=== PATIENT | male | born 2000 | race Caucasian/White ===

== ENCOUNTER 2024-02-25 13:06 | Emergency (ER) | payer OTHER ==
[~2024-02-25] VITALS: Ht 180.3 cm; Wt 104.5 kg
[2024-02-25 13:35] LABS: Urine Bacteria None Seen /hpf (None Seen)
[2024-02-25 13:49] LABS: Urine Blood Negative /uL (Negative); Urine Clarity Clear (Clear); Urine Color Yellow (Yellow); Urine Mucus FEW (None Seen); Urine Protein, UAD TRACE (Negative); Urine Specific Gravity 1.024 (1.001-1.035); Urine Urobilinogen Normal (Negative); Urine WBC 1 /hpf (0 - 3)
[2024-02-25 14:15] LABS: Basophils # (auto) 0 10 ^3/uL (0-0.2); Basophils % (auto) 0.1 % (0.0-2.0); Eosinophils # (auto) 0.1 10 ^3/uL (0-0.8); Monocytes # (auto) 0.6 10 ^3/uL (0-1.3)
[2024-02-25 14:17] LABS: Eosinophils % (auto) 1.2 % (0.0-7.0); Hematocrit 50.6 % (41.0-53.0); Hemoglobin 17.6 g/dL (13.5-17.5); Lymphocytes # (auto) 1.4 10 ^3/uL (0.4-5.4); Lymphocytes % (auto) 12.8 % (10.0-50.0); Mean Corpuscular Hemoglobin 31.3 pg (28.0-32.0); Mean Corpuscular Hgb Conc. 34.8 g/dL (32.0-36.0); Mean Corpuscular Volume 90.1 fL (80.0-100.0); Monocytes % (auto) 5.6 % (0.0-12.0); Neutrophils # (auto) 8.9 10 ^3/uL (1.6-8.6); Neutrophils % (auto) 80.3 % (37.0-80.0); Nucleated Red Blood Cells % 0.3 %; Platelet Count (auto) 244 10^3/uL (140-450); Red Blood Cells 5.62 10^6/uL (4.5-5.90); Red Cell Distribution Width 13.3 % (11.8-14.3); White Blood Cell 11.1 10^3/uL (4.4-10.8)
[2024-02-25 14:30] LABS: Alanine Aminotransferase 34 U/L (7-40); Alkaline Phosphatase 74 U/L (46-116); Anion Gap 6 (5-15); Aspartate Aminotransferase 15 U/L (13-40); BUN/Creatinine Ratio 6.4 (10.0-20.0); Blood Urea Nitrogen 8 mg/dL (9-23); Calcium 9.9 mg/dL (8.7-10.4); Carbon Dioxide 26 mmol/L (20-30); Chloride 107 mmol/L (98-107); Glucose 92 mg/dL (74-106); Lipase 39 U/L (12-53); Potassium 3.8 mmol/L (3.5-5.1); Sodium 139 mmol/L (136-145)
[2024-02-25 14:31] LABS: Total Protein 7.8 g/dL (5.7-8.2)
[2024-02-25] MEDS ORDERED: ZOFR4T PO (16:56)
[2024-02-25 17:00] VITALS: BP 134/91; PULSE 93; RESP 16; TEMP 98.3; O2SAT 98
[2024-02-25 17:13] LABS: Amphetamine Screen, Urine Neg (NEGATIVE); Barbiturate Scree,Urine Neg (NEGATIVE); Benzodiazephine Screen, Urine Neg (NEGATIVE); Cannabinoid Screen, Urine Pos (NEGATIVE); Cocaine Screen, Urine Neg (NEGATIVE); Opiate Scree,Urine Neg (NEGATIVE); Phencyclidine Screen, Urine Neg (NEGATIVE)
[2024-02-25] MEDS: SODIUM CHLORIDE 0.9% 1,000 ML IV ONE (17:14)
[2024-02-25] MEDS: LIDOCAINE VISCOUS 2% 15ML UD PO ONE (17:23)
[2024-02-25] MEDS: PANTOPRAZOLE 40 MG/10 ML VIAL INJ IV ONE (17:26)
[2024-02-25] MEDS: ONDANSETRON HCL 4 MG/2 ML VIAL IV ONE (17:34)
[2024-02-25] MEDS: SUCRALFATE 1 GM TAB PO ONE (17:44)
== END 2024-02-25 17:52 | disposition home or self-care (01) ==
LOC: ER 13:06
DX: R10.13 Epigastric pain (principal); R11.2 Nausea with vomiting, unspecified; Z88.1 Allergy status to other antibiotic agents
CPT/HCPCS: 36415; 74176; 80053; 80307; 81001; 83690; 85025; 96374; 96375; 99285; J2405; J2470; J7030